=== PATIENT | male | born 1950 | race Caucasian/White ===

== ENCOUNTER 2019-05-26 07:57 | Day surgery (SDC) | payer MEDICARE, BC ==
[~2019-05-26 07:57] MED LIST: Bupivacaine 0.5% 30 ML SDV ONE; Bupivacaine 0.5% 50 ML MDV ONE; Lidocaine 2% 20 ML MDV ONE
[2019-05-26] MEDS ORDERED: Lactated Ringers 1,000 ML IV SCH (10:15)
[2019-05-26] MEDS ORDERED: Propofol 200 MG/20 ML SDV ONE ×2 (10:56→12:24)
[2019-05-26] MEDS ORDERED: fentaNYL 100 MCG/2 ML SDV ONE (10:57)
[2019-05-26] MEDS ORDERED: Midazolam 1 MG/ML 2 ML SDV ONE (10:57)
--- NOTE | 2019-05-26 13:34 | OR ---
DATE OF PROCEDURE: 05/26/2019 SURGEON: Jaden Shepherd DPM [employer] OPERATOR: None. PREOPERATIVE DIAGNOSIS: Osteomyelitis, right great toe, both proximal and distal phalanges. POSTOPERATIVE DIAGNOSIS: Osteomyelitis, right great toe, both proximal and distal phalanges. PROCEDURE: Amputation of the right great toe at the metatarsophalangeal joint with biopsy of crystals. ANESTHESIA: Local with IV sedation. HEMOSTASIS: Obtained with an ankle tourniquet on the right ankle at 250 mmHg. ESTIMATED BLOOD LOSS: 10 mL. MATERIALS: None. INJECTABLES: A total of 15 mL of a 1:1 mixture of lidocaine 2% plain and Marcaine 0.5% plain were injected preoperatively. PATHOLOGY: Right great toe was sent. Aerobic and anaerobic cultures were sent. Also crystals were sent in a dry container. CONDITION: Stable. INDICATIONS FOR SURGERY: Osteomyelitis, right great toe, both phalanges. PROCEDURE IN DETAIL: The patient was brought into the operating room and placed on the operating table in supine position. Following IV sedation, anesthesia was obtained with a total of 15 mL of a 1:1 mixture of lidocaine 2% plain and Marcaine 0.5% plain. The right foot was scrubbed, prepped, and draped in the usual aseptic manner and raised to 60 degrees for hemostasis. Tourniquet was inflated. Esmarch was not used. Foot was lowered to the table. Skin incision was made in a tennis racquet incision with a longer plantar flap and dorsally around the base of the right great toe. Incisions were carried straight down to bone. The medial and lateral collateral ligaments of the first metatarsophalangeal joint were resected as well as the plantar plate at the flexors and the extensor tendons were resected. Then, at the amputation site, aerobic and anaerobic cultures were taken. The site was then flushed out with 1 L of sterile saline. We saw a lot of white crystalline material, so this was sent for pathological examination. The incision was examined, and we found that there were no signs of infection. There was healthy bleeding tissue. No purulence. No malodor. The first metatarsal head was solid. Skin closure was obtained with 3-0 nylon in a simple interrupted configuration. The foot was dressed with Xeroform, 4x4s, Kerlix, and Coban. The patient was returned to the recovery room with vital signs stable and vascular status intact to both feet. The patient was sent home with a prescription of Augmentin 875 mg one tab p.o. q.12h x14 days, dispensed #28. We will adjust antibiotics if needed according to intraoperative cultures. The patient was told to ambulate with only partial weightbearing on the right heel and only with his CAM boot on and to ambulate with a walker. The patient to return to clinic in one week, at which time, he will be re-evaluated. The patient was told to go to the emergency room immediately if he has any nausea, vomiting, fever, chills, chest pain, calf pain, or difficulty breathing. Jaden Shepherd DPM /[id number]
[2019-05-26 15:34] VITALS: BP 119/71; PULSE 111
== END 2019-05-26 15:10 | disposition home or self-care (01) ==
LOC: JP.SDS 07:57
PROVIDERS: ATTEND Podiatrist Foot & Ankle Surgery
DX: L02.611 Cutaneous abscess of right foot (principal); M1A.9XX1 Chronic gout, unspecified, with tophus (tophi); I11.0 Hypertensive heart disease with heart failure; I50.32 Chronic diastolic (congestive) heart failure; E78.5 Hyperlipidemia, unspecified; I48.91 Unspecified atrial fibrillation; E66.01 Morbid (severe) obesity due to excess calories; Z79.01 Long term (current) use of anticoagulants; Z79.899 Other long term (current) drug therapy; Z88.8 Allergy status to other drugs, medicaments and biological substances; Z68.41 Body mass index [BMI] 40.0-44.9, adult
CPT/HCPCS: 28820; 36415; 85610; 87070; 87075; 87205; J0690; J2001; J2250; J2704; J3010; J3490; J7050; J7120; 88305; 88311

== ENCOUNTER 2022-02-09 06:35 | Day surgery (SDC) | payer MEDICARE, BC ==
[2022-02-09] MEDS ORDERED: fentaNYL 50 MCG/ML SDV ONE (07:33)
[2022-02-09] MEDS ORDERED: Propofol 200 MG/20 ML SDV ONE (07:33)
[2022-02-09] MEDS ORDERED: Lactated Ringers 1,000 ML IV SCH (07:45)
[2022-02-09 09:34] VITALS: BP 117/78; PULSE 131
== END 2022-02-09 09:41 | disposition home or self-care (01) ==
LOC: JP.SDS 06:35
PROVIDERS: ATTEND Student in an Organized Health Care Education/Training Program
DX: K57.30 Diverticulosis of large intestine without perforation or abscess without bleeding (principal); I48.91 Unspecified atrial fibrillation; I50.9 Heart failure, unspecified; Z88.6 Allergy status to analgesic agent; Z88.8 Allergy status to other drugs, medicaments and biological substances
CPT/HCPCS: G0105; J2704; J3010; J7120

== ENCOUNTER 2022-02-12 11:20 | Inpatient (IN) | payer MEDICARE, BC ==
[2022-02-12] MEDS ORDERED: Diltiazem 25 MG/5 ML SDV IVPUSH ONE (12:09)
[2022-02-12 13:08] LABS: TROPONIN I HIGH SENSITIVITY 40.1 pg/mL (<=60.3)
[2022-02-12] MEDS ORDERED: Digoxin 500 MCG/2 ML Amp IVPUSH ONE (13:26)
[2022-02-12] MEDS ORDERED: Furosemide 40 MG/4 ML VIAL IVPUSH ONE (14:11)
[2022-02-12] MEDS ORDERED: Sodium Chloride 0.9% 10 ML Syringe FLUSH PRN (15:24)
[2022-02-12] MEDS ORDERED: Albuterol/Ipratropium 3.0-0.5 MG/3 ML Neb Soln NEB PRN (15:24)
[2022-02-12] MEDS ORDERED: Ondansetron 4 MG/2 ML SDV IV PRN (15:24)
[2022-02-12] MEDS ORDERED: Albuterol 90 MCG/6.7 GM Inhaler INH PRN (15:24)
[2022-02-12] MEDS ORDERED: Cyclobenzaprine 10 MG Tab PO PRN (15:24)
[2022-02-12] MEDS: Diltiazem 100 MG in Sodium Chloride 0.9% 100 ML IV SCH ×2 (15:48→22:56)
[2022-02-12] MEDS: Bumetanide 2.5 MG/10 ML MDV IVPUSH SCH ×2 (19:54→20:12)
[2022-02-13] MEDS: Diltiazem 100 MG in Sodium Chloride 0.9% 100 ML IV SCH ×2 (05:46→12:53)
[2022-02-13] MEDS ORDERED: Potassium Chloride 10 MEQ in Premix Bag 4 BAG IV ONE (06:00)
[2022-02-13] MEDS ORDERED: Potassium Chloride 20 MEQ Tab.ER PO ONE ×2 (06:00→13:27)
[2022-02-13] MEDS: Potassium Chloride 10 MEQ in Premix Bag 1 BAG IV SCH ×4 (06:47→09:49)
[2022-02-13] MEDS ORDERED: DIGOXIN 250 MCG PO SCH (09:00)
[2022-02-13] MEDS ORDERED: Non-Formulary Medication 1 Each (Duloxetine [Cymbalta] 60 MG Cap) PO SCH (09:00)
[2022-02-13] MEDS: DULoxetine 30 MG Cap PO SCH (09:17)
[2022-02-13] MEDS: Bumetanide 2.5 MG/10 ML MDV IVPUSH SCH ×3 (09:42→20:11)
[2022-02-13] MEDS: Digoxin 125 MCG Tab PO SCH (12:54)
[2022-02-13] MEDS: Diltiazem IR 30 MG Tab PO SCH ×2 (13:44→21:00)
[2022-02-14] MEDS: Diltiazem IR 30 MG Tab PO SCH ×2 (01:22→08:35)
[2022-02-14] MEDS: Bumetanide 2.5 MG/10 ML MDV IVPUSH SCH ×2 (06:01→18:09)
[2022-02-14] MEDS ORDERED: Potassium Chloride 20 MEQ Tab.ER PO ONE ×2 (08:30→17:00)
[2022-02-14] MEDS: DULoxetine 30 MG Cap PO SCH (08:31)
[2022-02-14] MEDS ORDERED: Diltiazem 120 MG Cap.CD PO SCH (09:00)
[2022-02-14] MEDS ORDERED: Diltiazem 120 MG Cap.CD PO ONE (13:30)
[2022-02-14] MEDS: Digoxin 125 MCG Tab PO SCH (13:56)
[2022-02-14] MEDS: Acetaminophen 325 MG Tab PO PRN ×2 (15:59→23:56)
[2022-02-15] MEDS: Bumetanide 2.5 MG/10 ML MDV IVPUSH SCH (06:01)
[2022-02-15] MEDS: DULoxetine 30 MG Cap PO SCH (08:39)
[2022-02-15] MEDS ORDERED: Diltiazem 120 MG Cap.CD PO SCH (09:00)
[2022-02-15 10:16] VITALS: BP 115/75; PULSE 107
== END 2022-02-15 12:55 | disposition home or self-care (01) | DRG 308 ==
LOC: JP.ED 11:20 → JP.ICU 14:34
PROVIDERS: ADMIT Hospitalist; ATTEND Hospitalist
DX: I48.91 Unspecified atrial fibrillation (principal); I50.43 Acute on chronic combined systolic (congestive) and diastolic (congestive) heart failure; N18.31 Chronic kidney disease, stage 3a; Z79.01 Long term (current) use of anticoagulants; Z88.8 Allergy status to other drugs, medicaments and biological substances; J30.9 Allergic rhinitis, unspecified; E78.00 Pure hypercholesterolemia, unspecified; N40.0 Benign prostatic hyperplasia without lower urinary tract symptoms; Z20.822 Contact with and (suspected) exposure to COVID-19; E66.9 Obesity, unspecified; M10.9 Gout, unspecified; M19.90 Unspecified osteoarthritis, unspecified site; M54.9 Dorsalgia, unspecified; Z68.39 Body mass index [BMI] 39.0-39.9, adult; Z79.899 Other long term (current) drug therapy
CPT/HCPCS: 36415; 71045 ×2; 80048; 80162; 83735; 84484; 85025; 85610; 93005; J1160; J1940; J3490; U0002; 84132; 93306; 94762; 99285; A9270-GY; J3480

== ENCOUNTER 2022-04-20 15:39 | Inpatient (IN) | payer MEDICARE, BC ==
[2022-04-20 17:10] LABS: ESTIMATED GFR 71 mL/min (>60); TROPONIN I HIGH SENSITIVITY 23.9 pg/mL (<=60.3)
[2022-04-20] MEDS ORDERED: Potassium Chloride 20 MEQ Tab.ER PO ONE (17:18)
[2022-04-20] MEDS ORDERED: Potassium Chloride 20 MEQ in Premix Bag 1 BAG IV ONE (17:18)
[2022-04-20] MEDS ORDERED: Lidocaine 1% PF 2 ML SDV IV ONE (17:26)
[2022-04-20] MEDS ORDERED: Lidocaine 1% 5 ML VIAL INJECT ONE (17:30)
[2022-04-20 18:56] LABS: CORONAVIRUS COVID-19 NAA NEGATIVE (NEGATIVE)
[2022-04-20] MEDS ORDERED: Sodium Chloride 0.9% 1,000 ML IV SCH ×2 (19:45→21:03)
[2022-04-20] MEDS ORDERED: Acetaminophen 325 MG Tab PO PRN (21:03)
[2022-04-20] MEDS ORDERED: Pantoprazole 40 MG Vial IV SCH (21:03)
[2022-04-20] MEDS ORDERED: Ondansetron 4 MG Tab.DIS PO PRN (21:03)
[2022-04-20] MEDS ORDERED: Ondansetron 4 MG/2 ML SDV IV PRN (21:03)
[2022-04-20] MEDS ORDERED: Albuterol/Ipratropium 3.0-0.5 MG/3 ML Neb Soln NEB PRN (21:03)
[2022-04-20] MEDS ORDERED: METOLAZONE 5 MG PO SCH (21:03)
[2022-04-20] MEDS ORDERED: Morphine 2 MG/ML SYRINGE IVPUSH PRN (21:03)
[2022-04-20] MEDS ORDERED: Non-Formulary Medication 1 Each (Pregabalin [Pregabalin] 75 MG Capsule) PO SCH (21:03)
[2022-04-20] MEDS ORDERED: oxyCODONE 5 MG Tab PO PRN (21:03)
[2022-04-20] MEDS ORDERED: Albuterol 0.083% 2.5 MG/3 ML Neb Soln NEB PRN (21:03)
[2022-04-20] MEDS: ceFAZolin 1 GM in Sodium Chloride 0.9% 50 ML IV SCH (21:39)
[2022-04-20] MEDS: predniSONE 20 MG Tab PO SCH (21:39)
[2022-04-20] MEDS ORDERED: Magnesium Sulfate/Water 2 GM in Premix Bag 1 BAG IV SCH (22:45)
[2022-04-20] MEDS ORDERED: Potassium Chloride 10 MEQ in Premix Bag 1 BAG IV ONE (23:00)
[2022-04-21] MEDS: Potassium Chloride 10 MEQ in Premix Bag 1 BAG IV SCH ×9 (00:53→15:44)
[2022-04-21] MEDS ORDERED: Digoxin 125 MCG Tab ONE (02:13)
[2022-04-21] MEDS ORDERED: Magnesium Sulfate/Water 2 GM in Premix Bag 1 BAG IV SCH (02:30)
[2022-04-21] MEDS ORDERED: Magnesium Sulfate/Water 2 GM in Premix Bag 1 BAG IV ONE (03:00)
[2022-04-21] MEDS: ceFAZolin 1 GM in Sodium Chloride 0.9% 50 ML IV SCH (04:34)
[2022-04-21] MEDS: Bumetanide 1 MG Tab PO SCH (08:33)
[2022-04-21] MEDS: predniSONE 20 MG Tab PO SCH (08:34)
[2022-04-21] MEDS: DULoxetine 30 MG Cap PO SCH (08:34)
[2022-04-21] MEDS ORDERED: Non-Formulary Medication 1 Each (Duloxetine [Cymbalta] 60 MG Cap) PO SCH (09:00)
[2022-04-21] MEDS ORDERED: Pneumococcal Polyvalent-23 Vaccine 0.5 ML SDV IM ONE (09:00)
[2022-04-21] MEDS ORDERED: Warfarin 5 MG Tab PO SCH (09:00)
[2022-04-21] MEDS: Diltiazem 180 MG Cap.CD PO SCH (10:25)
[2022-04-21] MEDS: Digoxin 125 MCG Tab PO SCH (12:03)
[2022-04-21] MEDS: ceFAZolin 1 GM in Premix Bag 1 BAG IV SCH ×2 (12:59→20:40)
[2022-04-21] MEDS ORDERED: Digoxin 125 MCG Tab PO SCH (13:00)
[2022-04-21] MEDS: Nystatin Topical Powder 15 GM Bottle TOP SCH ×2 (13:00→20:41)
[2022-04-21] MEDS ORDERED: Potassium Chloride 20 MEQ Tab.ER PO ONE ×2 (13:33→21:22)
[2022-04-21] MEDS: Pregabalin 75 MG Cap PO SCH ×2 (13:53→20:45)
[2022-04-22] MEDS: ceFAZolin 1 GM in Premix Bag 1 BAG IV SCH ×3 (05:29→20:19)
[2022-04-22] MEDS ORDERED: Potassium Chloride 20 MEQ in Premix Bag 1 BAG IV ONE (05:54)
[2022-04-22] MEDS: Bumetanide 1 MG Tab PO SCH (08:09)
[2022-04-22] MEDS: Diltiazem 180 MG Cap.CD PO SCH (08:09)
[2022-04-22] MEDS: Nystatin Topical Powder 15 GM Bottle TOP SCH ×3 (08:09→22:57)
[2022-04-22] MEDS: DULoxetine 30 MG Cap PO SCH (08:09)
[2022-04-22] MEDS: Pregabalin 75 MG Cap PO SCH ×2 (08:13→20:21)
[2022-04-22] MEDS ORDERED: Potassium Chloride 20 MEQ Tab.ER PO ONE ×2 (08:15→15:45)
[2022-04-22] MEDS ORDERED: Pneumococcal Polyvalent-23 Vaccine 0.5 ML SDV IM ONE (09:00)
[2022-04-22] MEDS: Digoxin 125 MCG Tab PO SCH (12:12)
[2022-04-22] MEDS ORDERED: Carvedilol 3.125 MG Tab PO ONE (13:00)
[2022-04-22] MEDS: Carvedilol 3.125 MG Tab PO SCH (20:19)
[2022-04-23] MEDS: ceFAZolin 1 GM in Premix Bag 1 BAG IV SCH ×3 (04:41→20:54)
[2022-04-23] MEDS: Pregabalin 75 MG Cap PO SCH ×3 (07:21→20:55)
[2022-04-23] MEDS ORDERED: Potassium Chloride 20 MEQ Tab.ER PO ONE (08:30)
[2022-04-23] MEDS: Bumetanide 1 MG Tab PO SCH (09:28)
[2022-04-23] MEDS: Diltiazem 180 MG Cap.CD PO SCH (09:28)
[2022-04-23] MEDS: Carvedilol 3.125 MG Tab PO SCH ×2 (09:29→20:48)
[2022-04-23] MEDS: DULoxetine 30 MG Cap PO SCH (09:29)
[2022-04-23] MEDS: Nystatin Topical Powder 15 GM Bottle TOP SCH ×3 (09:30→20:51)
[2022-04-23] MEDS: methylPREDNISolone Sodium Succinate 40 MG/1 ML SDV IVPUSH SCH ×2 (12:40→19:04)
[2022-04-23] MEDS: Digoxin 125 MCG Tab PO SCH (12:42)
[2022-04-24] MEDS: methylPREDNISolone Sodium Succinate 40 MG/1 ML SDV IVPUSH SCH ×2 (04:22→11:33)
[2022-04-24] MEDS: ceFAZolin 1 GM in Premix Bag 1 BAG IV SCH ×3 (05:55→20:05)
[2022-04-24] MEDS: Diltiazem 180 MG Cap.CD PO SCH (08:14)
[2022-04-24] MEDS: Bumetanide 1 MG Tab PO SCH (08:14)
[2022-04-24] MEDS: DULoxetine 30 MG Cap PO SCH (08:15)
[2022-04-24] MEDS ORDERED: Pneumococcal Polyvalent-23 Vaccine 0.5 ML SDV IM ONE (08:15)
[2022-04-24] MEDS: Nystatin Topical Powder 15 GM Bottle TOP SCH ×3 (08:15→20:07)
[2022-04-24] MEDS: Carvedilol 3.125 MG Tab PO SCH ×2 (08:15→20:07)
[2022-04-24] MEDS: Pregabalin 75 MG Cap PO SCH ×2 (08:16→20:10)
[2022-04-24] MEDS: Digoxin 125 MCG Tab PO SCH (12:54)
[2022-04-25] MEDS: ceFAZolin 1 GM in Premix Bag 1 BAG IV SCH ×3 (04:30→20:12)
[2022-04-25] MEDS: predniSONE 20 MG Tab PO SCH (07:20)
[2022-04-25] MEDS: Diltiazem 180 MG Cap.CD PO SCH (08:02)
[2022-04-25] MEDS: Carvedilol 3.125 MG Tab PO SCH ×2 (08:03→20:13)
[2022-04-25] MEDS: DULoxetine 30 MG Cap PO SCH (08:03)
[2022-04-25] MEDS: Nystatin Topical Powder 15 GM Bottle TOP SCH ×3 (08:04→20:13)
[2022-04-25] MEDS: Bumetanide 1 MG Tab PO SCH (08:05)
[2022-04-25] MEDS: Pregabalin 75 MG Cap PO SCH ×2 (08:06→20:13)
[2022-04-25] MEDS: Digoxin 125 MCG Tab PO SCH (12:04)
[2022-04-26] MEDS: ceFAZolin 1 GM in Premix Bag 1 BAG IV SCH (04:24)
[2022-04-26 07:33] VITALS: BP 103/62; PULSE 73
[2022-04-26] MEDS: Nystatin Topical Powder 15 GM Bottle TOP SCH (08:17)
[2022-04-26] MEDS: Bumetanide 1 MG Tab PO SCH (08:18)
[2022-04-26] MEDS: Carvedilol 3.125 MG Tab PO SCH (08:18)
[2022-04-26] MEDS: Diltiazem 180 MG Cap.CD PO SCH (08:18)
[2022-04-26] MEDS: predniSONE 20 MG Tab PO SCH (08:18)
[2022-04-26] MEDS: DULoxetine 30 MG Cap PO SCH (08:18)
[2022-04-26] MEDS: Pregabalin 75 MG Cap PO SCH (08:21)
== END 2022-04-26 10:15 | DRG 602 ==
LOC: JP.ED 15:39 → JP.MS 20:16
PROVIDERS: ADMIT Internal Medicine; ATTEND Internal Medicine
DX: L03.116 Cellulitis of left lower limb (principal); I50.43 Acute on chronic combined systolic (congestive) and diastolic (congestive) heart failure; I48.20 Chronic atrial fibrillation, unspecified; L03.115 Cellulitis of right lower limb; R53.1 Weakness; M54.9 Dorsalgia, unspecified; G89.29 Other chronic pain; Z20.822 Contact with and (suspected) exposure to COVID-19; I48.91 Unspecified atrial fibrillation; K57.90 Diverticulosis of intestine, part unspecified, without perforation or abscess without bleeding; E87.6 Hypokalemia; M1A.0790 Idiopathic chronic gout, unspecified ankle and foot, without tophus (tophi); N18.31 Chronic kidney disease, stage 3a; D63.1 Anemia in chronic kidney disease; E78.00 Pure hypercholesterolemia, unspecified; N40.0 Benign prostatic hyperplasia without lower urinary tract symptoms; L30.9 Dermatitis, unspecified; Z88.8 Allergy status to other drugs, medicaments and biological substances; M10.9 Gout, unspecified; E66.9 Obesity, unspecified; I87.2 Venous insufficiency (chronic) (peripheral); Z79.52 Long term (current) use of systemic steroids; Z79.01 Long term (current) use of anticoagulants; Z79.899 Other long term (current) drug therapy
CPT/HCPCS: 0241U; 36415; 71045; 71045-26; 80048; 80053; 80162; 81001; 83605; 83735; 83880; 84132; 84145; 84443; 84484; 85025; 85027; 85610; 86140; 96365; 97110-GP; 97116-GP; 97162-GP; 97530-GP; 97535-GP; 99222; 99232; 99238; 99284; 99285-25; A9270-GY; C9113; J0690; J2920; J3475; J3480; J3490; J7030; J7512

== ENCOUNTER 2022-05-06 13:01 | Emergency (ER) | payer MEDICARE, BC ==
[2022-05-06] MEDS ORDERED: Sodium Chloride 0.9% 10 ML Syringe FLUSH PRN (14:06)
[2022-05-06] MEDS ORDERED: Sodium Chloride 0.9% 1,000 ML IV SCH (14:15)
[2022-05-06] MEDS: Potassium Chloride 10 MEQ in Premix Bag 1 BAG IV SCH ×2 (14:36→15:49)
[2022-05-06 15:10] LABS: CORONAVIRUS COVID-19 NAA NEGATIVE (NEGATIVE)
[2022-05-06] MEDS ORDERED: Pregabalin 75 MG Cap PO ONE (16:03)
[2022-05-06 16:54] VITALS: BP 107/48; PULSE 59
== END 2022-05-06 17:15 | disposition home or self-care (01) ==
LOC: JP.ED 13:01
DX: I50.43 Acute on chronic combined systolic (congestive) and diastolic (congestive) heart failure (principal); N18.31 Chronic kidney disease, stage 3a; I48.20 Chronic atrial fibrillation, unspecified; R55 Syncope and collapse; E87.1 Hypo-osmolality and hyponatremia; E87.6 Hypokalemia; E86.1 Hypovolemia; E78.00 Pure hypercholesterolemia, unspecified; N40.0 Benign prostatic hyperplasia without lower urinary tract symptoms; M10.9 Gout, unspecified; E66.9 Obesity, unspecified; Z88.5 Allergy status to narcotic agent; Z88.8 Allergy status to other drugs, medicaments and biological substances; Z79.01 Long term (current) use of anticoagulants; Z79.899 Other long term (current) drug therapy; Z20.822 Contact with and (suspected) exposure to COVID-19; Z68.36 Body mass index [BMI] 36.0-36.9, adult
CPT/HCPCS: 0241U; 36415; 71045; 81001; 83735; 84145; 93005; 96365; 96366; 99285; A9270; J3480; J3490; J7030; 93010; 99284

== ENCOUNTER 2022-05-08 08:47 | Inpatient (IN) | payer MEDICARE, BC ==
[2022-05-08] MEDS ORDERED: Albuterol 90 MCG/6.7 GM Inhaler INH PRN (15:02)
[2022-05-08] MEDS ORDERED: Ondansetron 4 MG/2 ML SDV IV PRN (15:04)
[2022-05-08] MEDS ORDERED: Sodium Chloride 0.9% 10 ML Syringe FLUSH PRN (15:04)
[2022-05-08] MEDS ORDERED: Potassium Chloride 20 MEQ Tab.ER PO ONE ×2 (15:15→21:00)
[2022-05-08 15:45] LABS: ESTIMATED GFR 64 mL/min (>60)
[2022-05-08] MEDS: Sodium Chloride 0.9% 1,000 ML IV SCH (16:07)
[2022-05-08] MEDS: methylPREDNISolone Sodium Succinate 40 MG/1 ML SDV IVPUSH SCH (16:40)
[2022-05-08 16:49] LABS: CORONAVIRUS COVID-19 NAA NEGATIVE (NEGATIVE)
[2022-05-08] MEDS: cefTRIAXone 1 GM in Sodium Chloride 0.9% 50 ML IV SCH (17:14)
[2022-05-08] MEDS: Potassium Chloride 20 MEQ Tab.ER PO SCH (17:23)
[2022-05-08] MEDS: Doxycycline 100 MG in Sodium Chloride 0.9% 100 ML IV SCH (17:59)
[2022-05-08] MEDS ORDERED: Warfarin 5 MG Tab PO SCH (21:00)
[2022-05-08] MEDS ORDERED: Non-Formulary Medication 1 Each (Pregabalin [Pregabalin] 75 MG Capsule) PO SCH (21:00)
[2022-05-08] MEDS: Magnesium Oxide 400 MG Tab PO SCH (21:28)
[2022-05-08] MEDS: Pregabalin 75 MG Cap PO SCH (21:36)
[2022-05-08] MEDS: Magnesium Sulfate/Water 2 GM in Premix Bag 1 BAG IV SCH (22:34)
[2022-05-09] MEDS: Magnesium Sulfate/Water 2 GM in Premix Bag 1 BAG IV SCH (01:06)
[2022-05-09] MEDS: methylPREDNISolone Sodium Succinate 40 MG/1 ML SDV IVPUSH SCH ×2 (04:26→15:18)
[2022-05-09] MEDS: Doxycycline 100 MG in Sodium Chloride 0.9% 100 ML IV SCH ×2 (04:30→16:06)
[2022-05-09] MEDS: Sodium Chloride 0.9% 1,000 ML IV SCH (05:40)
[2022-05-09] MEDS ORDERED: Nystatin Topical Powder 15 GM Bottle TOP SCH (09:00)
[2022-05-09] MEDS ORDERED: Non-Formulary Medication 1 Each (Duloxetine [Cymbalta] 60 MG Cap) PO SCH (09:00)
[2022-05-09] MEDS ORDERED: Digoxin 125 MCG Tab PO SCH (09:00)
[2022-05-09] MEDS ORDERED: DILTIAZEM HCL 360 MG PO SCH (09:00)
[2022-05-09] MEDS: Allopurinol 100 MG Tab PO SCH (09:01)
[2022-05-09] MEDS: Potassium Chloride 20 MEQ Tab.ER PO SCH ×2 (09:01→16:06)
[2022-05-09] MEDS: Magnesium Oxide 400 MG Tab PO SCH ×2 (09:01→20:09)
[2022-05-09] MEDS: Diltiazem 180 MG Cap.CD PO SCH (09:02)
[2022-05-09] MEDS: DULoxetine 30 MG Cap PO SCH (09:02)
[2022-05-09] MEDS: Nystatin Topical Powder 15 GM Bottle TOP SCH ×3 (09:07→20:11)
[2022-05-09] MEDS: Pregabalin 75 MG Cap PO SCH ×2 (09:12→20:09)
[2022-05-09] MEDS: Digoxin 125 MCG Tab PO SCH (13:16)
[2022-05-09] MEDS: cefTRIAXone 1 GM in Sodium Chloride 0.9% 50 ML IV SCH (15:18)
[2022-05-10] MEDS: methylPREDNISolone Sodium Succinate 40 MG/1 ML SDV IVPUSH SCH (04:21)
[2022-05-10] MEDS: Doxycycline 100 MG in Sodium Chloride 0.9% 100 ML IV SCH ×2 (04:25→17:21)
[2022-05-10 04:55] LABS: ESTIMATED GFR 91 mL/min (>60)
[2022-05-10] MEDS: Potassium Chloride 20 MEQ Tab.ER PO SCH ×2 (08:00→16:40)
[2022-05-10] MEDS: Magnesium Oxide 400 MG Tab PO SCH ×2 (10:26→20:16)
[2022-05-10] MEDS: Pregabalin 75 MG Cap PO SCH ×2 (10:27→20:16)
[2022-05-10] MEDS: Allopurinol 100 MG Tab PO SCH ×2 (10:27→10:31)
[2022-05-10] MEDS: Diltiazem 180 MG Cap.CD PO SCH (10:27)
[2022-05-10] MEDS: Nystatin Topical Powder 15 GM Bottle TOP SCH ×3 (10:28→20:16)
[2022-05-10] MEDS: DULoxetine 30 MG Cap PO SCH (10:28)
[2022-05-10] MEDS: Betamethasone Dipropionate/Clotrimazole 0.05-1% Crm 15 GM Tube TOP SCH ×2 (13:36→20:15)
[2022-05-10] MEDS: Digoxin 125 MCG Tab PO SCH (14:18)
[2022-05-10] MEDS: cefTRIAXone 1 GM in Sodium Chloride 0.9% 50 ML IV SCH (16:37)
[2022-05-11] MEDS: Doxycycline 100 MG in Sodium Chloride 0.9% 100 ML IV SCH ×2 (04:26→18:35)
[2022-05-11 05:52] LABS: ESTIMATED GFR 91 mL/min (>60)
[2022-05-11] MEDS: Potassium Chloride 20 MEQ Tab.ER PO SCH ×2 (07:48→16:54)
[2022-05-11] MEDS: Diltiazem 180 MG Cap.CD PO SCH ×2 (07:49→10:00)
[2022-05-11] MEDS: DULoxetine 30 MG Cap PO SCH ×2 (07:50→10:00)
[2022-05-11] MEDS: Betamethasone Dipropionate/Clotrimazole 0.05-1% Crm 15 GM Tube TOP SCH ×3 (07:51→20:10)
[2022-05-11] MEDS: Magnesium Oxide 400 MG Tab PO SCH ×3 (07:52→20:10)
[2022-05-11] MEDS: Nystatin Topical Powder 15 GM Bottle TOP SCH ×4 (07:52→20:11)
[2022-05-11] MEDS: Pregabalin 75 MG Cap PO SCH ×2 (08:03→20:10)
[2022-05-11] MEDS: Digoxin 125 MCG Tab PO SCH (14:34)
[2022-05-11] MEDS: cefTRIAXone 1 GM in Sodium Chloride 0.9% 50 ML IV SCH (16:51)
[2022-05-11] MEDS: Doxycycline 100 MG Cap PO SCH (20:10)
[2022-05-11] MEDS: Acetaminophen 325 MG Tab PO PRN (20:11)
[2022-05-12 05:10] LABS: ESTIMATED GFR 94 mL/min (>60)
[2022-05-12] MEDS ORDERED: cefTRIAXone 1 GM, Lidocaine 1% 2.1 ML IM ONE ×2 (08:30)
[2022-05-12] MEDS: Pregabalin 75 MG Cap PO SCH ×2 (08:56→20:07)
[2022-05-12] MEDS: Doxycycline 100 MG Cap PO SCH ×2 (08:57→20:07)
[2022-05-12] MEDS: Potassium Chloride 20 MEQ Tab.ER PO SCH ×2 (08:57→16:13)
[2022-05-12] MEDS: Diltiazem 180 MG Cap.CD PO SCH (08:59)
[2022-05-12] MEDS: DULoxetine 30 MG Cap PO SCH (08:59)
[2022-05-12] MEDS: Magnesium Oxide 400 MG Tab PO SCH ×2 (09:00→20:07)
[2022-05-12] MEDS: Betamethasone Dipropionate/Clotrimazole 0.05-1% Crm 15 GM Tube TOP SCH ×2 (09:00→20:06)
[2022-05-12] MEDS: Nystatin Topical Powder 15 GM Bottle TOP SCH ×3 (09:01→20:06)
[2022-05-12] MEDS: predniSONE 20 MG Tab PO SCH (11:20)
[2022-05-12] MEDS: Digoxin 125 MCG Tab PO SCH (13:18)
[2022-05-12] MEDS ORDERED: cefTRIAXone 1 GM Vial IM SCH (16:00)
[2022-05-12] MEDS ORDERED: Warfarin 2.5 MG Tab PO ONE (16:00)
[2022-05-13] MEDS ORDERED: predniSONE 20 MG Tab PO SCH (08:00)
[2022-05-13] MEDS: Potassium Chloride 20 MEQ Tab.ER PO SCH ×2 (08:06→17:14)
[2022-05-13] MEDS: Diltiazem 180 MG Cap.CD PO SCH (08:06)
[2022-05-13] MEDS: Doxycycline 100 MG Cap PO SCH ×2 (08:06→20:20)
[2022-05-13] MEDS: Magnesium Oxide 400 MG Tab PO SCH ×2 (08:07→20:19)
[2022-05-13] MEDS: predniSONE 20 MG Tab PO SCH (08:07)
[2022-05-13] MEDS: DULoxetine 30 MG Cap PO SCH (08:07)
[2022-05-13] MEDS: Pregabalin 75 MG Cap PO SCH ×2 (08:07→20:19)
[2022-05-13] MEDS: Nystatin Topical Powder 15 GM Bottle TOP SCH ×3 (08:08→20:21)
[2022-05-13] MEDS: Betamethasone Dipropionate/Clotrimazole 0.05-1% Crm 15 GM Tube TOP SCH ×2 (08:08→20:20)
[2022-05-13] MEDS ORDERED: cefTRIAXone 1 GM, Lidocaine 1% 2.1 ML IM ONE ×2 (09:00)
[2022-05-13] MEDS: Digoxin 125 MCG Tab PO SCH (13:04)
[2022-05-13] MEDS: Acetaminophen 325 MG Tab PO PRN (20:19)
[2022-05-13] MEDS ORDERED: Cefdinir 300 MG Cap PO SCH (21:00)
[2022-05-14 07:52] VITALS: BP 127/59; PULSE 100
[2022-05-14] MEDS: Potassium Chloride 20 MEQ Tab.ER PO SCH (07:53)
[2022-05-14] MEDS: cefTRIAXone 1 GM in Sodium Chloride 0.9% 50 ML IV SCH (07:55)
[2022-05-14] MEDS: Pregabalin 75 MG Cap PO SCH (08:05)
[2022-05-14] MEDS: Betamethasone Dipropionate/Clotrimazole 0.05-1% Crm 15 GM Tube TOP SCH (08:06)
[2022-05-14] MEDS: Diltiazem 180 MG Cap.CD PO SCH (08:06)
[2022-05-14] MEDS: Magnesium Oxide 400 MG Tab PO SCH (08:06)
[2022-05-14] MEDS: predniSONE 20 MG Tab PO SCH (08:06)
[2022-05-14] MEDS: DULoxetine 30 MG Cap PO SCH (08:06)
[2022-05-14] MEDS: Nystatin Topical Powder 15 GM Bottle TOP SCH (08:06)
[2022-05-14] MEDS: Doxycycline 100 MG Cap PO SCH (08:10)
[2022-05-14] MEDS ORDERED: Cefdinir 300 MG Cap PO SCH (09:00)
== END 2022-05-14 09:15 | DRG 194 ==
LOC: JP.MS 08:47 → INTOOBSV 14:45 → JP.MS 14:45 → OBSVTOIN 05-11 08:47
PROVIDERS: ADMIT Hospitalist; ATTEND Hospitalist
DX: R53.1 Weakness (principal); J18.9 Pneumonia, unspecified organism; E87.1 Hypo-osmolality and hyponatremia; I48.20 Chronic atrial fibrillation, unspecified; I50.32 Chronic diastolic (congestive) heart failure; E86.0 Dehydration; I48.91 Unspecified atrial fibrillation; M1A.0790 Idiopathic chronic gout, unspecified ankle and foot, without tophus (tophi); N18.31 Chronic kidney disease, stage 3a; R06.02 Shortness of breath; E87.6 Hypokalemia; R63.0 Anorexia; J30.9 Allergic rhinitis, unspecified; E78.00 Pure hypercholesterolemia, unspecified; I34.0 Nonrheumatic mitral (valve) insufficiency; M19.90 Unspecified osteoarthritis, unspecified site; Z20.822 Contact with and (suspected) exposure to COVID-19; G89.29 Other chronic pain; M54.9 Dorsalgia, unspecified; N40.0 Benign prostatic hyperplasia without lower urinary tract symptoms; K80.50 Calculus of bile duct without cholangitis or cholecystitis without obstruction; E66.9 Obesity, unspecified; T50.2X5A Adverse effect of carbonic-anhydrase inhibitors, benzothiadiazides and other diuretics, initial encounter; B35.9 Dermatophytosis, unspecified; F03.90 Unspecified dementia, unspecified severity, without behavioral disturbance, psychotic disturbance, mood disturbance, and anxiety; Z98.49 Cataract extraction status, unspecified eye; Z79.899 Other long term (current) drug therapy; Z98.890 Other specified postprocedural states; Z79.01 Long term (current) use of anticoagulants; Z89.419 Acquired absence of unspecified great toe
CPT/HCPCS: 0241U; 36415; 71045; 76700; 78227; 80048; 80053; 81001; 83735; 85025; 85610; 86713; 87040; 97110; 97162; 97530; 99232; 99238; 99222; A9270-GY; J0696; J2920; J3475; J3490; J7030; J7512

== ENCOUNTER 2022-11-17 08:55 | Inpatient (IN) | payer MEDICARE ==
[2022-11-17 09:27] LABS: BASOPHILS ABSOLUTE AUTO 0.08 K/uL (0.00-0.10); BASOPHILS PERCENT AUTO 0.4 % (0.1-1.3); EOSINOPHILS ABSOLUTE AUTO 1.53 K/uL (0.00-0.40); EOSINOPHILS PERCENT AUTO 7.2 % (0.0-5.4); IMMATURE GRAN ABSOLUTE AUTO 0.49 K/uL (0.00-0.23); IMMATURE GRAN PERCENT AUTO 2.3 % (0.0-0.7); LYMPHOCYTES ABSOLUTE AUTO 0.95 K/uL (0.8-3.3); LYMPHOCYTES PERCENT AUTO 4.5 % (11.4-47.7); MEAN CORPUSCULAR HEMOGLOBIN 19.2 pg (31.6-35.5); MEAN CORPUSCULAR HGB CONC 27.9 g/dL (31.6-35.5); MEAN CORPUSCULAR VOLUME 68.8 fL (81.4-99.0); MONOCYTES ABSOLUTE AUTO 1.73 K/uL (0.20-0.90); MONOCYTES PERCENT AUTO 8.1 % (3.3-12.6); NEUTROPHILS ABSOLUTE AUTO 16.53 K/uL (1.0-7.6); NEUTROPHILS PERCENT AUTO 77.5 % (40.0-78.1); PLATELET COUNT,PLT 360 K/uL (130-375); WHITE BLOOD CELL COUNT,WBC 21.3 K/uL (3.2-11.0)
[2022-11-17 09:29] LABS: HEMOGLOBIN 6.7 g/dL (12.9-16.9)
[2022-11-17 09:30] LABS: RED BLOOD CELL COUNT 3.49 M/uL (4.14-5.76)
[2022-11-17 09:55] LABS: A/G RATIO 0.7 (1.2-2.2); ALANINE AMINOTRANSFERASE,ALT 21 U/L (12-78); ALBUMIN 2.7 g/dL (3.4-5.0); ALKALINE PHOSPHATASE 75 U/L (46-116); ANION GAP 13.3 mmol/L (5.0-14.0); ASPARTATE AMNIOTRANSFERASE,AST 11 U/L (15-37); BILIRUBIN TOTAL 1.2 mg/dL (0.2-1.0); BLOOD UREA NITROGEN,BUN 20 mg/dL (7-18); C-REACTIVE PROTEIN 18.61 mg/dL (0.0-0.3); CALCIUM 8.3 mg/dL (8.5-10.1); CARBON DIOXIDE,CO2 30 mmol/L (21-32); CHLORIDE,CL 91 mmol/L (100-108); CREATININE 1.4 mg/dL (0.8-1.3); EST CRCL DRUG DOSING (CG) 42.41 mL/min; ESTIMATED GFR 53 mL/min (>60); GLUCOSE RANDOM 210 mg/dL (74-106); POTASSIUM,K 4.3 mmol/L (3.6-5.2); PRO B-TYPE NATRIUR PEPT,BNPPRO 258 pg/mL (5-125); PROTEIN TOTAL,TP 6.5 g/dL (6.4-8.2); SODIUM,NA 130 mmol/L (140-148)
[2022-11-17] MEDS ORDERED: cefTRIAXone 2 GM in Sodium Chloride 0.9% 50 ML IV ONE (10:14)
[2022-11-17] MEDS ORDERED: metroNIDAZOLE/Normal Saline 500 MG in Premix Bag 1 BAG IV ONE (10:15)
[2022-11-17] MEDS ORDERED: Vancomycin 2 GM in Sodium Chloride 0.9% 500 ML IV ONE (10:17)
[2022-11-17] MEDS ORDERED: metroNIDAZOLE/Normal Saline 100 ML ONE (10:27)
[2022-11-17] MEDS ORDERED: Sodium Chloride 0.9% 1,000 ML IV ONE (10:39)
[2022-11-17 12:02] LABS: APPEARANCE,URINE CLEAR (CLEAR); BILIRUBIN,URINE NEGATIVE (NEGATIVE); COLOR,URINE YELLOW (YELLOW); GLUCOSE,URINE NEGATIVE (NEGATIVE); KETONES,URINE NEGATIVE (NEGATIVE); LEUKOCYTE ESTERASE,URINE NEGATIVE (NEGATIVE); NITRITE,URINE NEGATIVE (NEGATIVE); OCCULT BLOOD,URINE NEGATIVE (NEGATIVE); PROTEIN,URINE NEGATIVE (NEGATIVE); UROBILINOGEN,URINE 0.2 EU/dL (0.2-1.0)
[2022-11-17 12:09] LABS: AMORPHOUS SEDIMENT,URINE FEW; BACTERIA,URINE NOT SEEN; EPITHELIAL CELLS,URINE NOT SEEN; MUCUS,URINE NOT SEEN; RBC,URINE NOT SEEN (0-5); WBC,URINE NOT SEEN (0-5)
[2022-11-17] MEDS ORDERED: predniSONE 20 MG Tab PO ONE ×2 (12:52→15:30)
[2022-11-17] MEDS ORDERED: Sodium Chloride 0.9% 500 ML IV SCH (13:00)
[2022-11-17 13:39] LABS: IRON,FE 8 ug/dL (65-175); PERCENT FE SATURATION 3 % (20-55); TOTAL IRON BINDING CAPACITY 307 ug/dl (250-450)
[2022-11-17] MEDS ORDERED: Magnesium Hydroxide 400 MG/5 ML Susp 30 ML Cup PO PRN (14:51)
[2022-11-17] MEDS ORDERED: Albuterol 0.083% 2.5 MG/3 ML Neb Soln NEB PRN (14:51)
[2022-11-17] MEDS ORDERED: Melatonin 3 MG Tab PO PRN (14:51)
[2022-11-17] MEDS ORDERED: Sennosides/Docusate Sodium 50-8.6 MG Tab PO PRN (14:51)
[2022-11-17] MEDS ORDERED: Ondansetron 4 MG Tab.DIS PO PRN (14:51)
[2022-11-17] MEDS ORDERED: Ondansetron 4 MG/2 ML SDV IV PRN (14:51)
[2022-11-17] MEDS ORDERED: Acetaminophen 325 MG Tab PO PRN (14:51)
[2022-11-17] MEDS: oxyCODONE 5 MG Tab PO PRN (15:16)
[2022-11-17] MEDS: Sodium Ferric Gluconate Cmplex 125 MG in Sodium Chloride 0.9% 100 ML IV SCH (15:28)
[2022-11-17] MEDS: metFORMIN 500 MG Tab PO SCH (16:47)
[2022-11-17] MEDS: Gabapentin 300 MG Cap PO SCH (20:09)
[2022-11-17] MEDS: Acetaminophen 325 MG Tab PO SCH (20:09)
[2022-11-18 05:14] LABS: HEMATOCRIT 22.5 % (38.4-49.7); MEAN CORPUSCULAR HGB CONC 27.6 g/dL (31.6-35.5); MEAN CORPUSCULAR VOLUME 68.8 fL (81.4-99.0); RED BLOOD CELL COUNT 3.27 M/uL (4.14-5.76); WHITE BLOOD CELL COUNT,WBC 23.6 K/uL (3.2-11.0)
[2022-11-18 05:25] LABS: CALCIUM 8.4 mg/dL (8.5-10.1); CREATININE 1.1 mg/dL (0.8-1.3); EST CRCL DRUG DOSING (CG) 53.97 mL/min; POTASSIUM,K 3.7 mmol/L (3.6-5.2)
[2022-11-18 05:26] LABS: HEMOGLOBIN 6.2 g/dL (12.9-16.9)
[2022-11-18 05:27] LABS: ANION GAP 10.7 mmol/L (5.0-14.0)
[2022-11-18] MEDS: metFORMIN 500 MG Tab PO SCH ×2 (07:39→16:55)
[2022-11-18] MEDS: predniSONE 20 MG Tab PO SCH (07:39)
[2022-11-18] MEDS: Pantoprazole 40 MG Tab.CR PO SCH (07:39)
[2022-11-18] MEDS: Gabapentin 300 MG Cap PO SCH ×2 (08:18→20:11)
[2022-11-18] MEDS: DULoxetine 20 MG Cap PO SCH (08:18)
[2022-11-18] MEDS: Magnesium Oxide 400 MG Tab PO SCH (08:18)
[2022-11-18] MEDS: Diltiazem 180 MG Cap.CD PO SCH (08:19)
[2022-11-18] MEDS: Digoxin 125 MCG Tab PO SCH (13:02)
[2022-11-18] MEDS: Sodium Ferric Gluconate Cmplex 125 MG in Sodium Chloride 0.9% 100 ML IV SCH (16:56)
[2022-11-18] MEDS: oxyCODONE 5 MG Tab PO PRN (16:58)
[2022-11-18] MEDS: Acetaminophen 325 MG Tab PO SCH (20:10)
[2022-11-19 04:54] LABS: HEMATOCRIT 21.9 % (38.4-49.7); MEAN CORPUSCULAR HEMOGLOBIN 19.3 pg (31.6-35.5); MEAN CORPUSCULAR HGB CONC 27.4 g/dL (31.6-35.5); MEAN CORPUSCULAR VOLUME 70.4 fL (81.4-99.0); RED BLOOD CELL COUNT 3.11 M/uL (4.14-5.76); WHITE BLOOD CELL COUNT,WBC 23.6 K/uL (3.2-11.0)
[2022-11-19] MEDS: metFORMIN 500 MG Tab PO SCH ×2 (07:28→17:11)
[2022-11-19] MEDS: Pantoprazole 40 MG Tab.CR PO SCH (07:28)
[2022-11-19] MEDS: predniSONE 20 MG Tab PO SCH (07:29)
[2022-11-19] MEDS: Bumetanide 1 MG Tab PO SCH (10:05)
[2022-11-19] MEDS: Gabapentin 300 MG Cap PO SCH ×2 (10:05→20:04)
[2022-11-19] MEDS: Diltiazem 180 MG Cap.CD PO SCH (10:06)
[2022-11-19] MEDS: DULoxetine 20 MG Cap PO SCH (10:06)
[2022-11-19] MEDS: Magnesium Oxide 400 MG Tab PO SCH (10:06)
[2022-11-19] MEDS ORDERED: Sodium Ferric Gluconate Cmplex 125 MG in Sodium Chloride 0.9% 100 ML IV ONE (12:00)
[2022-11-19] MEDS: Digoxin 125 MCG Tab PO SCH (13:32)
[2022-11-19] MEDS: Febuxostat 40 MG Tab PO SCH (13:32)
[2022-11-19] MEDS: Acetaminophen 325 MG Tab PO SCH (20:04)
[2022-11-20 05:30] LABS: HEMATOCRIT 22.6 % (38.4-49.7); MEAN CORPUSCULAR HEMOGLOBIN 19.9 pg (31.6-35.5); MEAN CORPUSCULAR HGB CONC 27.9 g/dL (31.6-35.5); MEAN CORPUSCULAR VOLUME 71.5 fL (81.4-99.0); PLATELET COUNT,PLT 372 K/uL (130-375); RED BLOOD CELL COUNT 3.16 M/uL (4.14-5.76); WHITE BLOOD CELL COUNT,WBC 24.6 K/uL (3.2-11.0)
[2022-11-20 05:43] LABS: HEMOGLOBIN 6.3 g/dL (12.9-16.9)
[2022-11-20 06:03] LABS: BAND ABSOLUTE MAN 0.49 K/uL; BAND PERCENT MAN 2 % (5-11); HYPOCHROMASIA FEW; LYMPHOCYTES ABSOLUTE MAN 1.72 K/uL (0.8-3.3); LYMPHOCYTES PERCENT MAN 7 % (24-44); METAMYELOCYTE ABSOLUTE MAN 0.49 K/uL; METAMYELOCYTE PERCENT MAN 2 %; MONOCYTES ABSOLUTE MAN 0.74 K/uL (0.20-0.90); MONOCYTES PERCENT MAN 3 % (2-6); NEUTROPHILS ABSOLUTE MAN 21.16 K/uL (1.0-7.6); SEG NEUTROPHILS PERCENT MAN 86 % (36-66)
[2022-11-20 06:17] VITALS: BP 113/49; PULSE 55
[2022-11-20] MEDS: predniSONE 20 MG Tab PO SCH (07:36)
[2022-11-20] MEDS: metFORMIN 500 MG Tab PO SCH (07:36)
[2022-11-20] MEDS: Pantoprazole 40 MG Tab.CR PO SCH (07:37)
[2022-11-20] MEDS: Bumetanide 1 MG Tab PO SCH (09:03)
[2022-11-20] MEDS: DULoxetine 20 MG Cap PO SCH (09:03)
[2022-11-20] MEDS: Diltiazem 180 MG Cap.CD PO SCH (09:03)
[2022-11-20] MEDS: Magnesium Oxide 400 MG Tab PO SCH (09:04)
[2022-11-20] MEDS: Gabapentin 300 MG Cap PO SCH (09:04)
[2022-11-20] MEDS: Febuxostat 40 MG Tab PO SCH (09:04)
[2022-11-20] MEDS: Digoxin 125 MCG Tab PO SCH (12:08)
== END 2022-11-20 13:32 | disposition home or self-care (01) | DRG 812 ==
LOC: JP.ED 08:55 → JP.MS 12:55
PROVIDERS: ADMIT Internal Medicine; ATTEND Internal Medicine
DX: A41.9 Sepsis, unspecified organism (principal); D50.9 Iron deficiency anemia, unspecified; I48.20 Chronic atrial fibrillation, unspecified; I50.32 Chronic diastolic (congestive) heart failure; N18.9 Chronic kidney disease, unspecified; I48.91 Unspecified atrial fibrillation; M10.9 Gout, unspecified; M10.09 Idiopathic gout, multiple sites; D63.1 Anemia in chronic kidney disease; N18.31 Chronic kidney disease, stage 3a; E11.22 Type 2 diabetes mellitus with diabetic chronic kidney disease; E86.0 Dehydration; M79.621 Pain in right upper arm; E78.00 Pure hypercholesterolemia, unspecified; N40.0 Benign prostatic hyperplasia without lower urinary tract symptoms; Z20.822 Contact with and (suspected) exposure to COVID-19; M19.90 Unspecified osteoarthritis, unspecified site; F03.90 Unspecified dementia, unspecified severity, without behavioral disturbance, psychotic disturbance, mood disturbance, and anxiety; E66.9 Obesity, unspecified; E86.1 Hypovolemia; R35.89 Other polyuria; M25.521 Pain in right elbow; Z98.49 Cataract extraction status, unspecified eye; Z88.5 Allergy status to narcotic agent; Z88.8 Allergy status to other drugs, medicaments and biological substances; Z98.890 Other specified postprocedural states; Z79.01 Long term (current) use of anticoagulants; Z79.84 Long term (current) use of oral hypoglycemic drugs; Z79.899 Other long term (current) drug therapy; Z68.39 Body mass index [BMI] 39.0-39.9, adult
CPT/HCPCS: 36415; 71045 ×2; 80053; 81001; 83605; 83880; 84145; 85025; 86140; 87040 ×2; 96365; 96366; 96367; 96368; 99285; J0696; J3370; J3490 ×2; J7030; J7040; U0002; 80048; 82728; 83550; 84550; 85027; 97161-GP; 99222; 99232; 99238; A9270-GY; J2916; J7512

== ENCOUNTER 2023-03-23 11:18 | Emergency (ER) | payer MEDICARE ==
[2023-03-23 14:09] VITALS: BP 130/71; PULSE 80
== END 2023-03-23 14:00 | disposition home or self-care (01) ==
LOC: JP.ED 11:18
DX: S20.229A Contusion of unspecified back wall of thorax, initial encounter (principal); E11.9 Type 2 diabetes mellitus without complications; Z86.16 Personal history of COVID-19; Z88.8 Allergy status to other drugs, medicaments and biological substances; Z88.6 Allergy status to analgesic agent; V00.811A Fall from moving wheelchair (powered), initial encounter
CPT/HCPCS: 72128; 76377; 99283

== ENCOUNTER 2023-04-17 20:47 | Emergency (ER) | payer MEDICARE ==
[2023-04-17 21:26] LABS: BASOPHILS ABSOLUTE AUTO 0.08 K/uL (0.00-0.10); BASOPHILS PERCENT AUTO 0.6 % (0.1-1.3); EOSINOPHILS ABSOLUTE AUTO 0.92 K/uL (0.00-0.40); EOSINOPHILS PERCENT AUTO 7.3 % (0.0-5.4); HEMOGLOBIN 10.6 g/dL (12.9-16.9); IMMATURE GRAN PERCENT AUTO 0.8 % (0.0-0.7); LYMPHOCYTES ABSOLUTE AUTO 1.49 K/uL (0.8-3.3); LYMPHOCYTES PERCENT AUTO 11.9 % (11.4-47.7); MEAN CORPUSCULAR HEMOGLOBIN 25.5 pg (31.6-35.5); MEAN CORPUSCULAR HGB CONC 32.1 g/dL (31.6-35.5); MEAN CORPUSCULAR VOLUME 79.3 fL (81.4-99.0); MONOCYTES PERCENT AUTO 11.2 % (3.3-12.6); NEUTROPHILS ABSOLUTE AUTO 8.56 K/uL (1.0-7.6); NEUTROPHILS PERCENT AUTO 68.2 % (40.0-78.1); PLATELET COUNT,PLT 349 K/uL (130-375); RED BLOOD CELL COUNT 4.16 M/uL (4.14-5.76); WHITE BLOOD CELL COUNT,WBC 12.6 K/uL (3.2-11.0)
[2023-04-17 21:42] LABS: CALCIUM 8.5 mg/dL (8.5-10.1); CREATININE 1.1 mg/dL (0.8-1.3); EST CRCL DRUG DOSING (CG) 53.97 mL/min; POTASSIUM,K 4.2 mmol/L (3.6-5.2)
[2023-04-17 21:43] LABS: ANION GAP 11.2 mmol/L (5.0-14.0)
[2023-04-17] MEDS ORDERED: Cephalexin 250 MG Cap PO ONE (22:08)
[2023-04-17 22:47] VITALS: BP 105/68; PULSE 71
== END 2023-04-17 22:50 ==
LOC: JP.ED 20:47
DX: L03.114 Cellulitis of left upper limb (principal); E78.00 Pure hypercholesterolemia, unspecified; E11.9 Type 2 diabetes mellitus without complications; I50.9 Heart failure, unspecified; E66.9 Obesity, unspecified; Z68.34 Body mass index [BMI] 34.0-34.9, adult; Z86.16 Personal history of COVID-19; Z79.899 Other long term (current) drug therapy; Z79.84 Long term (current) use of oral hypoglycemic drugs; Z88.8 Allergy status to other drugs, medicaments and biological substances; Z88.6 Allergy status to analgesic agent; Z88.5 Allergy status to narcotic agent
CPT/HCPCS: 36415; 80048; 83605; 84550; 85025; 99283; A9270-GY

== ENCOUNTER 2024-06-26 14:34 | Emergency (ER) | payer MEDICARE ==
[2024-06-26 15:09] VITALS: BP 129/67; PULSE 90
[2024-06-26 15:37] LABS: APPEARANCE,URINE CLEAR (CLEAR); BILIRUBIN,URINE NEGATIVE (NEGATIVE); GLUCOSE,URINE NEGATIVE (NEGATIVE); KETONES,URINE NEGATIVE (NEGATIVE); LEUKOCYTE ESTERASE,URINE TRACE (NEGATIVE); NITRITE,URINE NEGATIVE (NEGATIVE); OCCULT BLOOD,URINE TRACE-INTACT (NEGATIVE); PH,URINE 5.5 (5.0-8.0); PROTEIN,URINE NEGATIVE (NEGATIVE); UROBILINOGEN,URINE 0.2 EU/dL (0.2-1.0)
[2024-06-26 15:50] LABS: AMORPHOUS SEDIMENT,URINE NOT SEEN; BACTERIA,URINE RARE; COLOR,URINE OTHER (YELLOW); EPITHELIAL CELLS,URINE RARE; MUCUS,URINE NOT SEEN; RBC,URINE 0-5 (0-5); WBC,URINE 0-5 (0-5)
[2024-06-26] MEDS: cefTRIAXone 1 GM, Lidocaine 1% 2.1 ML IM ONE (15:54)
[2024-06-26] MEDS: Lidocaine 2% Jelly 10 ML Urojet MUCMEM ONE (15:54)
== END 2024-06-26 16:13 ==
LOC: JP.ED 14:34
DX: N39.0 Urinary tract infection, site not specified (principal); I48.91 Unspecified atrial fibrillation; I50.9 Heart failure, unspecified; E11.9 Type 2 diabetes mellitus without complications; E66.9 Obesity, unspecified; M19.90 Unspecified osteoarthritis, unspecified site; Z88.8 Allergy status to other drugs, medicaments and biological substances; Z79.899 Other long term (current) drug therapy; Z79.51 Long term (current) use of inhaled steroids; Z79.84 Long term (current) use of oral hypoglycemic drugs; Z86.16 Personal history of COVID-19; Z68.37 Body mass index [BMI] 37.0-37.9, adult
CPT/HCPCS: 81001; 96372; 99283; J0696; J2003

== ENCOUNTER 2024-08-03 10:49 | Emergency (ER) | payer MEDICARE ==
[2024-08-03 11:49] LABS: BASOPHILS ABSOLUTE AUTO 0.08 K/uL (0.00-0.10); BASOPHILS PERCENT AUTO 0.5 % (0.1-1.3); EOSINOPHILS ABSOLUTE AUTO 0.69 K/uL (0.00-0.40); EOSINOPHILS PERCENT AUTO 4.1 % (0.0-5.4); HEMATOCRIT 39.9 % (38.4-49.7); HEMOGLOBIN 12.6 g/dL (12.9-16.9); IMMATURE GRAN ABSOLUTE AUTO 0.25 K/uL (0.00-0.23); IMMATURE GRAN PERCENT AUTO 1.5 % (0.0-0.7); LYMPHOCYTES ABSOLUTE AUTO 2.38 K/uL (0.8-3.3); LYMPHOCYTES PERCENT AUTO 14.1 % (11.4-47.7); MEAN CORPUSCULAR HEMOGLOBIN 28.2 pg (31.6-35.5); MEAN CORPUSCULAR HGB CONC 31.6 g/dL (31.6-35.5); MEAN CORPUSCULAR VOLUME 89.3 fL (81.4-99.0); MONOCYTES PERCENT AUTO 8.9 % (3.3-12.6); NEUTROPHILS ABSOLUTE AUTO 12.02 K/uL (1.0-7.6); NEUTROPHILS PERCENT AUTO 70.9 % (40.0-78.1); PLATELET COUNT,PLT 224 K/uL (130-375); RED BLOOD CELL COUNT 4.47 M/uL (4.14-5.76); WHITE BLOOD CELL COUNT,WBC 16.9 K/uL (3.2-11.0)
[2024-08-03 12:11] LABS: A/G RATIO 1.1 (1.2-2.2); ALANINE AMINOTRANSFERASE,ALT 25 U/L (12-78); ALBUMIN 3.3 g/dL (3.4-5.0); ALKALINE PHOSPHATASE 140 U/L (46-116); ASPARTATE AMNIOTRANSFERASE,AST 13 U/L (15-37); BILIRUBIN TOTAL 1.1 mg/dL (0.2-1.0); BLOOD UREA NITROGEN,BUN 20 mg/dL (7-18); CALCIUM 8.4 mg/dL (8.5-10.1); CARBON DIOXIDE,CO2 27 mmol/L (21-32); CHLORIDE,CL 106 mmol/L (100-108); EST CRCL DRUG DOSING (CG) 54.27 mL/min; ESTIMATED GFR 79 mL/min (>60); GLUCOSE RANDOM 106 mg/dL (74-106); POTASSIUM,K 4.4 mmol/L (3.6-5.2); PROTEIN TOTAL,TP 6.4 g/dL (6.4-8.2); SODIUM,NA 143 mmol/L (140-148)
[2024-08-03 14:42] VITALS: BP 158/84; PULSE 84
[2024-08-03] MEDS: Lidocaine 1% 10 ML MDV INJECT ONE (17:09)
[2024-08-03 17:29] LABS: APPEARANCE,URINE CLEAR (CLEAR); BILIRUBIN,URINE NEGATIVE (NEGATIVE); COLOR,URINE YELLOW (YELLOW); GLUCOSE,URINE NEGATIVE (NEGATIVE); KETONES,URINE NEGATIVE (NEGATIVE); LEUKOCYTE ESTERASE,URINE TRACE (NEGATIVE); NITRITE,URINE NEGATIVE (NEGATIVE); OCCULT BLOOD,URINE TRACE-INTACT (NEGATIVE); PH,URINE 6.5 (5.0-8.0); PROTEIN,URINE NEGATIVE (NEGATIVE)
[2024-08-03 17:37] LABS: AMORPHOUS SEDIMENT,URINE NOT SEEN; BACTERIA,URINE RARE; EPITHELIAL CELLS,URINE RARE; MUCUS,URINE RARE
[2024-08-03] MEDS: HYDROmorphone 1 MG/ML Syringe IVPUSH ONE (19:13)
[2024-08-03] MEDS: Sodium Chloride 0.9% 10 ML Syringe FLUSH PRN (19:13)
== END 2024-08-03 19:55 ==
LOC: JP.ED 10:49
DX: N13.9 Obstructive and reflux uropathy, unspecified (principal); K80.20 Calculus of gallbladder without cholecystitis without obstruction; E78.00 Pure hypercholesterolemia, unspecified; E11.9 Type 2 diabetes mellitus without complications; E66.9 Obesity, unspecified; Z86.16 Personal history of COVID-19; Z79.899 Other long term (current) drug therapy; Z88.8 Allergy status to other drugs, medicaments and biological substances
CPT/HCPCS: 36415; 51102; 74176; 76942; 80053; 81001; 85025; 96374; 99284; C1729; J1171; J2003

== ENCOUNTER 2024-09-10 08:20 | Day surgery (SDC) | payer MEDICARE ==
[2024-09-10] MEDS ORDERED: Midazolam 1 MG/ML 2 ML SDV ONE (08:27)
[2024-09-10] MEDS ORDERED: Propofol 200 MG/20 ML SDV ONE (08:27)
[2024-09-10] MEDS ORDERED: fentaNYL 100 MCG/2 ML SDV ONE (08:27)
[2024-09-10] MEDS: Sodium Chloride 0.9% 1,000 ML IV SCH (09:43)
[2024-09-10] MEDS: Bupivacaine 0.5% 50 ML MDV ONE (10:01)
[2024-09-10] MEDS: Lidocaine 1% with EPINEPHrine 1:100,000 50 ML MDV ONE (10:02)
[2024-09-10] MEDS: ceFAZolin 2 GM in Premix Bag 1 BAG IV ONE (11:51)
[2024-09-10 13:28] VITALS: BP 113/59; PULSE 85
== END 2024-09-10 14:00 ==
LOC: JP.SDS 08:20
PROVIDERS: ATTEND Surgery
DX: D17.0 Benign lipomatous neoplasm of skin and subcutaneous tissue of head, face and neck (principal); I48.91 Unspecified atrial fibrillation; I13.0 Hypertensive heart and chronic kidney disease with heart failure and stage 1 through stage 4 chronic kidney disease, or unspecified chronic kidney disease; N18.30 Chronic kidney disease, stage 3 unspecified; E78.5 Hyperlipidemia, unspecified; E66.01 Morbid (severe) obesity due to excess calories; Z79.899 Other long term (current) drug therapy; Z88.8 Allergy status to other drugs, medicaments and biological substances; Z88.6 Allergy status to analgesic agent
CPT/HCPCS: 00300; 21555; 88304; J0665; J0690; J2250; J2704; J3010; J7030

== ENCOUNTER 2024-12-28 07:56 | Day surgery (SDC) | payer MEDICARE ==
[2024-12-28] MEDS ORDERED: Propofol 200 MG/20 ML SDV ONE (08:17)
[2024-12-28] MEDS ORDERED: Midazolam 1 MG/ML 2 ML SDV ONE (08:17)
[2024-12-28] MEDS ORDERED: fentaNYL 100 MCG/2 ML SDV ONE (08:17)
[2024-12-28 08:27] LABS: PLATELET COUNT,PLT 252.0 K/uL (130-375); RED BLOOD CELL COUNT 4.15 M/uL (4.14-5.76); WHITE BLOOD CELL COUNT,WBC 14.4 K/uL (3.2-11.0)
[2024-12-28 08:34] VITALS: BP 135/91; PULSE 76
[2024-12-28 08:45] LABS: BLOOD UREA NITROGEN,BUN 22.0 mg/dL (7-18); CARBON DIOXIDE,CO2 29.0 mmol/L (21-32); CHLORIDE,CL 102.0 mmol/L (100-108); CREATININE 1.2 mg/dL (0.8-1.3); EST CRCL DRUG DOSING (CG) 48.0 mL/min; ESTIMATED GFR 63.0 mL/min (>60); GLUCOSE RANDOM 113.0 mg/dL (74-106); POTASSIUM,K 4.1 mmol/L (3.6-5.2); SODIUM,NA 140.0 mmol/L (140-148)
[2024-12-28] MEDS: Nozin Nasal Sanitizer NASBOTH SCH (08:53)
[2024-12-28] MEDS: Lactated Ringers 1,000 ML IV SCH (09:08)
[2024-12-28] MEDS ORDERED: Magnesium Hydroxide 400 MG/5 ML Susp 30 ML Cup PO PRN (09:28)
[2024-12-28] MEDS ORDERED: Ketorolac 30 MG/ML SDV IVPUSH PRN (09:28)
[2024-12-28] MEDS ORDERED: Ondansetron 4 MG/2 ML SDV IVPUSH PRN (09:28)
[2024-12-28] MEDS ORDERED: WARFARIN 3 MG PO SCH (09:30)
[2024-12-28] MEDS ORDERED: Non-Formulary Medication 1 Each (Warfarin [Coumadin] 2 MG Tablet) PO SCH (09:30)
[2024-12-28 09:52] LABS: INR 3.3
[2024-12-28] MEDS ORDERED: Non-Formulary Medication 1 Each (Atorvastatin Calcium [Lipitor] 40 MG Tablet) PO SCH (21:00)
[2024-12-28] MEDS ORDERED: Nozin Nasal Sanitizer NASBOTH SCH (21:00)
[2024-12-29] MEDS ORDERED: Cyanocobalamin (Vitamin B12) 1,000 MCG Tab PO SCH (09:00)
[2024-12-29] MEDS ORDERED: DILTIAZEM HCL 360 MG PO SCH (09:00)
[2024-12-29] MEDS ORDERED: Non-Formulary Medication 1 Each (Lidocaine 5% [Lidoderm 5%] 700 MG Patch) TOP SCH (09:00)
[2024-12-29] MEDS ORDERED: DULOXETINE HCL 40 MG PO SCH (09:00)
== END 2024-12-28 10:30 | disposition home or self-care (01) ==
LOC: JP.SDS 07:56
PROVIDERS: ATTEND Specialist
DX: M17.0 Bilateral primary osteoarthritis of knee (principal); Z53.8 Procedure and treatment not carried out for other reasons; I48.91 Unspecified atrial fibrillation; I13.0 Hypertensive heart and chronic kidney disease with heart failure and stage 1 through stage 4 chronic kidney disease, or unspecified chronic kidney disease; I50.43 Acute on chronic combined systolic (congestive) and diastolic (congestive) heart failure; E11.22 Type 2 diabetes mellitus with diabetic chronic kidney disease; N18.30 Chronic kidney disease, stage 3 unspecified; E66.01 Morbid (severe) obesity due to excess calories; Z68.41 Body mass index [BMI] 40.0-44.9, adult; Z88.8 Allergy status to other drugs, medicaments and biological substances; Z79.01 Long term (current) use of anticoagulants; Z79.899 Other long term (current) drug therapy; Z79.84 Long term (current) use of oral hypoglycemic drugs
CPT/HCPCS: 36415; 80048; 85027; 85610; A9270; J7120; J0665; J2250; J2704; J3010

== ENCOUNTER 2024-12-31 00:34 | Emergency (ER) | payer MEDICARE ==
[2024-12-31 00:58] VITALS: BP 125/72; PULSE 87
[2024-12-31 01:17] LABS: BASOPHILS ABSOLUTE AUTO 0.07 K/uL (0.00-0.10); BASOPHILS PERCENT AUTO 0.5 % (0.1-1.3); EOSINOPHILS ABSOLUTE AUTO 1.21 K/uL (0.00-0.40); EOSINOPHILS PERCENT AUTO 8.6 % (0.0-5.4); IMMATURE GRAN ABSOLUTE AUTO 0.10 K/uL (0.00-0.23); IMMATURE GRAN PERCENT AUTO 0.7 % (0.0-0.7); LYMPHOCYTES ABSOLUTE AUTO 2.33 K/uL (0.8-3.3); LYMPHOCYTES PERCENT AUTO 16.5 % (11.4-47.7); MONOCYTES ABSOLUTE AUTO 1.14 K/uL (0.20-0.90); MONOCYTES PERCENT AUTO 8.1 % (3.3-12.6); NEUTROPHILS ABSOLUTE AUTO 9.28 K/uL (1.0-7.6); NEUTROPHILS PERCENT AUTO 65.6 % (40.0-78.1); PLATELET COUNT,PLT 219 K/uL (130-375); RED BLOOD CELL COUNT 3.96 M/uL (4.14-5.76); WHITE BLOOD CELL COUNT,WBC 14.1 K/uL (3.2-11.0)
[2024-12-31 01:37] LABS: APPEARANCE,URINE CLOUDY (CLEAR); GLUCOSE,URINE NEGATIVE (NEGATIVE); OCCULT BLOOD,URINE MODERATE (NEGATIVE)
[2024-12-31 01:39] LABS: A/G RATIO 1.0 (1.2-2.2); ALANINE AMINOTRANSFERASE,ALT 29 U/L (12-78); ASPARTATE AMNIOTRANSFERASE,AST 25 U/L (15-37); BILIRUBIN TOTAL 0.9 mg/dL (0.2-1.0); BLOOD UREA NITROGEN,BUN 23 mg/dL (7-18); CARBON DIOXIDE,CO2 29 mmol/L (21-32); CHLORIDE,CL 100 mmol/L (100-108); CREATININE 1.2 mg/dL (0.8-1.3); ESTIMATED GFR 63 mL/min (>60); GLUCOSE RANDOM 113 mg/dL (74-106); POTASSIUM,K 4.3 mmol/L (3.6-5.2); PROTEIN TOTAL,TP 6.8 g/dL (6.4-8.2); SODIUM,NA 139 mmol/L (140-148)
[2024-12-31 01:40] LABS: SQUAMOUS EPITHELIAL CELLS,UR FEW /HPF; UROTHELIAL CELLS,URINE NOT SEEN /HPF
[2024-12-31 01:44] LABS: LACTIC ACID 1.9 mmol/L (0.4-2.0)
== END 2024-12-31 02:07 | disposition home or self-care (01) ==
LOC: JP.ED 00:34
DX: T83.030A Leakage of cystostomy catheter, initial encounter (principal); T83.510A Infection and inflammatory reaction due to cystostomy catheter, initial encounter; N39.0 Urinary tract infection, site not specified; I48.91 Unspecified atrial fibrillation; E78.00 Pure hypercholesterolemia, unspecified; E11.9 Type 2 diabetes mellitus without complications; E66.9 Obesity, unspecified; Z88.5 Allergy status to narcotic agent; Z88.8 Allergy status to other drugs, medicaments and biological substances; Z79.84 Long term (current) use of oral hypoglycemic drugs; Z79.01 Long term (current) use of anticoagulants; Z79.899 Other long term (current) drug therapy
CPT/HCPCS: 36415; 51705; 80053; 81001; 83605; 85025; 87086; 99283

== ENCOUNTER 2025-01-15 14:16 | Emergency (ER) | payer MEDICAID, MEDICARE ==
[2025-01-15 14:49] VITALS: BP 130/51; PULSE 72
== END 2025-01-15 15:39 | disposition home or self-care (01) ==
LOC: JP.ED 14:16
DX: T83.010A Breakdown (mechanical) of cystostomy catheter, initial encounter (principal); E66.9 Obesity, unspecified; E11.9 Type 2 diabetes mellitus without complications; Z88.8 Allergy status to other drugs, medicaments and biological substances; Z79.84 Long term (current) use of oral hypoglycemic drugs; Z79.01 Long term (current) use of anticoagulants; Z79.899 Other long term (current) drug therapy; Z68.38 Body mass index [BMI] 38.0-38.9, adult
CPT/HCPCS: 51705; 99283-25